=== PATIENT | male | born 1975 | race Caucasian/White ===

== ENCOUNTER 2017-05-28 00:34 | Emergency (ER) | payer SELFPAY ==
[~2017-05-28] VITALS: Ht 180.3 cm; Wt 92.9 kg
[2017-05-28 00:35] VITALS: BP 163/96
[2017-05-28] MEDS ORDERED: KETOROLAC 30 MG/1 ML IM ONE (01:00)
[2017-05-28] MEDS ORDERED: KETOROLAC 30 MG/1 ML ONE (01:01)
== END 2017-05-28 02:35 | disposition home or self-care (01) ==
LOC: ED 02:29
DX: S76.312A Strain of muscle, fascia and tendon of the posterior muscle group at thigh level, left thigh, initial encounter (principal); I10 Essential (primary) hypertension; E78.5 Hyperlipidemia, unspecified; X58.XXXA Exposure to other specified factors, initial encounter; Y93.89 Activity, other specified; Y99.8 Other external cause status; Y92.89 Other specified places as the place of occurrence of the external cause
CPT/HCPCS: 73564; 93971; 96372; 99284; J1885